=== PATIENT | female | born 1995 | race Caucasian/White ===

== ENCOUNTER → 2016-12-27 | Outpatient (CLI) | payer BC, OTHER, SELFPAY ==
[2016-12-27 16:18] LABS: CHLORIDE,CL 106 mmol/L (98-110); SODIUM,NA 140 mmol/L (136-146)
== END ==
LOC: MW.CHOBGYN 15:21
PROVIDERS: ATTEND Nurse Practitioner Women's Health
DX: R00.1 Bradycardia, unspecified (principal); R42 Dizziness and giddiness; I95.9 Hypotension, unspecified
CPT/HCPCS: 36415; 80048; 84703; 85025; 93005

== ENCOUNTER 2018-02-16 10:48 | Emergency (ER) | payer BC ==
--- NOTE | 2018-02-16 11:00 | EDM.PDOC ---
ED HPI GENERAL MEDICAL PROBLEM - General Chief Complaint: Respiratory Problem Stated Complaint: COUGH, CHEST CONGESTION Time Seen by Provider: 02/16/18 10:59 Source of Information: Reports: Patient - History of Present Illness INITIAL COMMENTS - FREE TEXT/NARRATIVE: HISTORY AND PHYSICAL: History of present illness: 23-year-old female presenting with chief complaint of cough 3 days. Patient states that approximately 3 days ago she began to have a cough with some mild yellow greenish sputum production. Cough is continued to be an issue however she is not as productive of since the first day of her illness. She has noted some subjective fevers as well as chills and night sweats in the evenings. She denies any significant nausea other than when she has a coughing exacerbation. She has had no diarrhea, pain, sore throat, sinus congestion, or dysuria. Family denies any chest pain, limitations, shortness of breath, syncopal episodes, focal neurologic deficits. She does have a history of childhood exertional asthma and was given an albuterol inhaler by her primary care provider. She is also somewhat concerned that moving into her new apartment may have a receptive this. Her fianc has not had symptoms but she does state that she is very sensitive to mold and other allergens. On exam patient does have prolonged expiratory phase bilaterally lower lobes but no significant wheezing. Review of systems: As per history of present illness and below otherwise all systems reviewed and negative. Past medical history: As per history of present illness and as reviewed below otherwise noncontributory. Surgical history: As per history of present illness and as reviewed below otherwise noncontributory. Social history: No reported history of drug or alcohol abuse. Family history: As per history of present illness and as reviewed below otherwise noncontributory. Physical exam: HEENT: Atraumatic, normocephalic, pupils reactive, negative for conjunctival pallor or scleral icterus, mucous membranes moist, throat clear, neck supple, nontender, trachea midline. Lungs: Clear to auscultation, prolonged expiratory phase by bilateral lower lobes, breath sounds equal bilaterally, chest nontender. Heart: S1S2, regular, negative for clicks, rubs, or JVD. Abdomen: Soft, nondistended, nontender. Negative for masses or hepatosplenomegaly. Negative for costovertebral tenderness. Pelvis: Stable nontender. Genitourinary: Deferred. Rectal: Deferred. Extremities: Atraumatic, negative for cords or calf pain. Neurovascular unremarkable. Neuro: Awake, alert, oriented. Cranial nerves II through XII unremarkable. Cerebellum unremarkable. Motor and sensory unremarkable throughout. Exam nonfocal. Diagnostics: cbc, bmp, cxr Therapeutics: duo-neb, Tessalon Perles Impression: Viral upper respiratory tract infection Plan: CBC, BMP, and chest x-ray were unremarkable. Patient most likely had a viral upper respiratory tract infection this was communicated to her. I did give her a prescription for Tessalon Perles to be used for her cough. She is instructed to follow-up with her primary care provider Gaye as well as return to emergency department if she had any new or worsening symptoms. Throat Pain Score (Numeric/FACES): 4 - Related Data Allergies Allergy/AdvReac Type Severity Reaction Status Date / Time No Known Allergies Allergy Verified 02/16/18 11:44 Home Meds: Home Meds . [No Known Home Meds] 02/16/18 [History] Past Medical History - Past Health History Medical/Surgical History: Denies Medical/Surgical History Social & Family History - Family History Family Medical History: Noncontributory - Caffeine Use Caffeine Use: Reports: Coffee ED ROS GENERAL - Review of Systems Review Of Systems: ROS reveals no pertinent complaints other than HPI. ED EXAM, GENERAL - Physical Exam Exam: See Below Course - Vital Signs Last Recorded V/S: Last Vital Signs Temp 97.3 F 02/16/18 11:38 Pulse 84 02/16/18 11:38 Resp 18 02/16/18 11:38 BP 104/76 02/16/18 11:38 Pulse Ox 97 02/16/18 11:38 - Orders/Labs/Meds Orders: Active Orders 24 hr Category Date Time Status RT Aerosol Therapy [RC] ASDIRECTED Care 02/16/18 11:49 Active CXR [Chest 2V] [CR] Stat Exams 02/16/18 11:45 Ordered BASIC METABOLIC PANEL,BMP [CHEM] Stat Lab 02/16/18 11:54 Received Labs: Laboratory Tests 02/16/18 Range/Units 11:54 WBC 6.09 (4.0-11.0) K/uL RBC 4.09 L (4.30-5.90) M/uL Hgb 12.2 (12.0-16.0) g/dL Hct 36.1 (36.0-46.0) % MCV 88.3 (80.0-98.0) fL MCH 29.8 (27.0-32.0) pg MCHC 33.8 (31.0-37.0) g/dL RDW Std Deviation 39.3 (28.0-62.0) fl RDW Coeff of Ese 12 (11.0-15.0) % Plt Count 180 (150-400) K/uL MPV 11.50 (7.40-12.00) fL Neut % (Auto) 44.0 L (48.0-80.0) % Lymph % (Auto) 37.8 (16.0-40.0) % [place] % (Auto) 6.9 (0.0-15.0) % Eos % (Auto) 10.5 H (0.0-7.0) % Baso % (Auto) 0.8 (0.0-1.5) % Neut # (Auto) 2.7 (1.4-5.7) K/uL Lymph # (Auto) 2.3 (0.6-2.4) K/uL [place] # (Auto) 0.4 (0.0-0.8) K/uL Eos # (Auto) 0.6 (0.0-0.7) K/uL Baso # (Auto) 0.1 (0.0-0.1) K/uL Nucleated RBC % 0.0 /100WBC Nucleated RBCs # 0 K/uL Meds: Medications Discontinued Medications Generic Name Dose Route Start Last Admin Trade Name Freq PRN Reason Stop Dose Admin Albuterol/Ipratropium 3 ml 02/16/18 11:49 02/16/18 11:57 Duoneb 3.0-0.5 Mg/3 Ml NEB 02/16/18 11:50 3 ml ONETIME ONE Administration Departure - Departure Time of Disposition: 12:53 Disposition: Home, Self-Care 01 Condition: Good Clinical Impression: Viral URI with cough - Discharge Information Referrals: Gaye Kwok, OCCUPATIONAL HEALTH NURSE SUPERVISOR [Primary Care Provider] - Forms: ED Department Discharge Additional Instructions: My general discharge The following information is given to patients seen in the emergency department who are being discharged to home. This information is to outline your options for follow-up care. We provide all patients seen in our emergency department with a follow-up referral. The need for follow-up, as well as the timing and circumstances, are variable depending upon the specifics of your emergency department visit. If you don't have a primary care physician on staff, we will provide you with a referral. We always advise you to contact your personal physician following an emergency department visit to inform them of the circumstance of the visit and for follow-up with them and/or the need for any referrals to a consulting specialist. The emergency department will also refer you to a specialist when appropriate. This referral assures that you have the opportunity for follow-up care with a specialist. All of these measure are taken in an effort to provide you with optimal care, which includes your follow-up. Under all circumstances we always encourage you to contact your private physician who remains a resource for coordinating your care. When calling for follow-up care, please make the office aware that this follow-up is from your recent emergency room visit. If for any reason you are refused follow-up, please contact the [facility] Emergency Department at and asked to speak to the emergency department charge nurse. [facility] [address] [place] [address] Take medications as prescribed. Follow-up with your primary care provider Return to emergency department if any new or worsening symptoms. - My Orders Last 24 Hours: My Active Orders 02/16/18 11:45 CXR [Chest 2V] [CR] Stat 02/16/18 11:49 RT Aerosol Therapy [RC] ASDIRECTED 02/16/18 11:54 BASIC METABOLIC PANEL,BMP [CHEM] Stat - Assessment/Plan Last 24 Hours: My Active Orders 02/16/18 11:45 CXR [Chest 2V] [CR] Stat 02/16/18 11:49 RT Aerosol Therapy [RC] ASDIRECTED 02/16/18 11:54 BASIC METABOLIC PANEL,BMP [CHEM] Stat
[2018-02-16] MEDS ORDERED: Albuterol/Ipratropium 3.0-0.5 MG/3 ML Neb Soln NEB ONE (11:49)
[2018-02-16 12:36] LABS: CHLORIDE,CL 104 mmol/L (98-107); SODIUM,NA 140 mmol/L (136-145)
[2018-02-16 13:16] VITALS: BP 112/68
--- NOTE | 2018-02-17 15:59 | CR ---
EXAM DATE: 02/16/18 PATIENT'S AGE: 23 Patient: ABHIJEET MUÑOZ Facility: [place], [place] Site . Site : 1995 Study: XRay Chest [id number]/17/2018 12:57:18 PM Ordering Physician: Everardo Sellers Final Report: INDICATION: Cough TECHNIQUE: Chest 2 views COMPARISON: None FINDINGS: Cardiovascular and mediastinum: Heart size and vasculature are normal in caliber and appearance. Lungs and pleural spaces: Lungs are clear. No sign of infiltrate or mass. No sign of pleural effusion. No pneumothorax. Bones and soft tissues: No significant findings. IMPRESSION: No acute or significant findings. Dictated by Dino Rodriguez MD @ Feb 16 2018 1:39PM (Electronic Signature) Report Signed by Proxy. HARJINDER
== END 2018-02-16 13:10 | disposition home or self-care (01) ==
LOC: MW.ED 10:48
DX: J06.9 Acute upper respiratory infection, unspecified (principal)
CPT/HCPCS: 36415; 71046; 71046-26; 80048; 85025; 94640; 99284-25

== ENCOUNTER 2018-12-24 19:03 | Emergency (ER) | payer OTHER, BC ==
[2018-12-24] MEDS ORDERED: Diphtheria,Pertussis(Acell),Tetanus Vaccine 0.5 ML Syringe IM ONE (19:26)
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
[2018-12-24 20:24] VITALS: BP 126/79
[2018-12-25] MEDS ORDERED: Sodium Chloride 0.9% 250 ML IV SCH (04:30)
== END 2018-12-24 20:22 | disposition home or self-care (01) ==
LOC: MW.ED 19:03
DX: S60.512A Abrasion of left hand, initial encounter (principal); Y09 Assault by unspecified means; Z23 Encounter for immunization
CPT/HCPCS: 36415; 86803; 87340; 87389; 90471; 90715; 99282; 99284

== ENCOUNTER 2019-03-14 15:55 | Emergency (ER) | payer BC, OTHER ==
[2019-03-14] MEDS ORDERED: methylPREDNISolone Sodium Succinate 125 MG/2 ML SDV IM ONE (15:58)
[2019-03-14] MEDS ORDERED: diphenhydrAMINE 50 MG Cap PO ONE (15:58)
[2019-03-14] MEDS ORDERED: EPINEPHrine 1 MG/ML SDV IM ONE (16:05)
[2019-03-14] MEDS ORDERED: Sodium Chloride 0.9% 2.5 ML Syringe FLUSH PRN (16:06)
[2019-03-14] MEDS ORDERED: Famotidine 20 MG/2 ML SDV IVPUSH ONE (16:06)
[2019-03-14] MEDS ORDERED: Sodium Chloride 0.9% 10 ML Syringe FLUSH PRN (16:06)
[2019-03-14] MEDS ORDERED: diphenhydrAMINE 50 MG/ML SDV IVPUSH ONE (16:06)
[2019-03-14] MEDS ORDERED: methylPREDNISolone Sodium Succinate 125 MG/2 ML SDV IVPUSH ONE (16:06)
--- NOTE | 2019-03-14 16:12 | EDM.PDOC ---
ED HPI GENERAL MEDICAL PROBLEM - General Chief Complaint: Allergic Reaction Stated Complaint: RASH, TROUBLE BREATHING Time Seen by Provider: 03/14/19 16:09 Source of Information: Reports: Patient History Limitations: Reports: No Limitations - History of Present Illness INITIAL COMMENTS - FREE TEXT/NARRATIVE: HISTORY AND PHYSICAL: History of present illness: Patient is a 24-year-old female presents to the ED with concern of allergic reaction. She has a history of environmental allergies. She states she was sitting on the couch approximately 1 hour prior to arrival to the ED when she felt like the right side of her throat was tight, lips swollen and itchy on the right, and right eye swollen. She states she then started to feel drainage from her sinuses down her throat. She took a claritin and a puff of her steroid inhaler. She states her voice has been hoarse for a couple of days due to a cold. She thinks she has a sinus infection as she has had nasal congestion and sinus pressure. Review of systems: As per history of present illness and below otherwise all systems reviewed and negative. Past medical history: As per history of present illness and as reviewed below otherwise noncontributory. Surgical history: As per history of present illness and as reviewed below otherwise noncontributory. Social history: No reported history of drug or alcohol abuse. Family history: As per history of present illness and as reviewed below otherwise noncontributory. Physical exam: General: Patient sitting comfortably in no acute distress and nontoxic appearing HEENT: Right maxillary sinus tenderness to palpation. No obvious oropharyngeal swelling. Right anterior cervical lymphadenopathy. Atraumatic, normocephalic, pupils reactive, negative for conjunctival pallor or scleral icterus, mucous membranes moist, throat clear, neck supple, nontender, trachea midline. No meningeal signs. Lungs: Clear to auscultation, breath sounds equal bilaterally, chest nontender. No stridor, wheezing or increased work of breathing. Heart: S1S2, regular, negative for clicks, rubs, or overt murmur. Abdomen: Soft, nondistended, nontender. Negative for masses or hepatosplenomegaly. Negative for costovertebral tenderness. No rigidity, rebound , guarding. Pelvis: Stable nontender. Genitourinary: Deferred. Rectal: Deferred. Extremities: Atraumatic, negative for cords or calf pain. Neurovascular unremarkable. Neuro: Awake, alert, oriented. Cranial nerves II through XII unremarkable. Cerebellum unremarkable. Motor and sensory unremarkable throughout. Exam nonfocal. Notes: Diagnostics: CBC, CMP Therapeutics: 0.4mg Epi IM 1L Normal Saline IV 50mg Benadryl IV 125mg Solumedrol IV 20mg Famotidine IV Prescriptions: Augmentin Medrol dosepak Impression: Acute sinusitis, allergic reaction Plan: 1. Take medications as instructed 2. Follow up with primary care provider 3. Return to ED as needed as discussed Definitive disposition and diagnosis as appropriate pending reevaluation and review of above. - Related Data Allergies Allergy/AdvReac Type Severity Reaction Status Date / Time No Known Allergies Allergy Verified 03/14/19 16:01 Home Meds: Home Meds Albuterol [Ventolin HFA] 03/14/19 [History] Amoxicillin/Clavulanate K [Augmentin 875-125 MG] 1 tab PO BID 7 Days #14 tablet 03/14/19 [Rx] Loratadine [Claritin] 10 mg PO DAILY 03/14/19 [History] methylPREDNISolone [Medrol] 4 mg PO ASDIRECTED #1 dosepk 03/14/19 [Rx] Past Medical History - Past Health History Medical/Surgical History: Denies Medical/Surgical History Social & Family History - Family History Family Medical History: Noncontributory - Tobacco Use Smoking Status *Q: Never Smoker - Caffeine Use Caffeine Use: Reports: Coffee, Tea - Recreational Drug Use Recreational Drug Use: No ED ROS ALLERGIC REACTION - Review of Systems Review Of Systems: ROS reveals no pertinent complaints other than HPI. ED EXAM GENERAL NO PERIP PULSE - Physical Exam Exam: See Below (see dictation) Course - Vital Signs Last Recorded V/S: Last Vital Signs Temp 97.6 F 03/14/19 15:59 Pulse 100 03/14/19 15:59 Resp 20 03/14/19 15:59 BP 142/82 H 03/14/19 15:59 Pulse Ox 99 03/14/19 15:59 - Orders/Labs/Meds Orders: Active Orders 24 hr Category Date Time Status Sodium Chloride 0.9% [Saline Flush] Med 03/14/19 16:06 Active 10 ml FLUSH ASDIRECTED PRN Sodium Chloride 0.9% [Saline Flush] Med 03/14/19 16:06 Active 2.5 ml FLUSH ASDIRECTED PRN Saline Lock Insert [OM.PC] Stat Oth 03/14/19 16:06 Ordered Medication Orders Sodium Chloride (Saline Flush) 10 ml FLUSH ASDIRECTED PRN PRN Reason: Keep Vein Open Sodium Chloride (Saline Flush) 2.5 ml FLUSH ASDIRECTED PRN PRN Reason: Keep Vein Open Labs: Laboratory Tests 03/14/19 03/14/19 Range/Units 16:15 16:15 WBC 8.43 (4.0-11.0) K/uL RBC 4.52 (4.30-5.90) M/uL Hgb 13.3 (12.0-16.0) g/dL Hct 40.9 (36.0-46.0) % MCV 90.5 (80.0-98.0) fL MCH 29.4 (27.0-32.0) pg MCHC 32.5 (31.0-37.0) g/dL RDW Std Deviation 41.5 (28.0-62.0) fl RDW Coeff of Ese 13 (11.0-15.0) % Plt Count 197 (150-400) K/uL MPV 12.00 (7.40-12.00) fL Neut % (Auto) 58.8 (48.0-80.0) % Lymph % (Auto) 24.4 (16.0-40.0) % [place] % (Auto) 11.6 (0.0-15.0) % Eos % (Auto) 5.0 (0.0-7.0) % Baso % (Auto) 0.2 (0.0-1.5) % Neut # (Auto) 5.0 (1.4-5.7) K/uL Lymph # (Auto) 2.1 (0.6-2.4) K/uL [place] # (Auto) 1.0 H (0.0-0.8) K/uL Eos # (Auto) 0.4 (0.0-0.7) K/uL Baso # (Auto) 0.0 (0.0-0.1) K/uL Nucleated RBC % 0.0 /100WBC Nucleated RBCs # 0 K/uL Sodium 143 (136-145) mmol/L Potassium 3.8 (3.5-5.1) mmol/L Chloride 106 (98-107) mmol/L Carbon Dioxide 30.1 (21.0-32.0) mmol/L BUN 10 (7.0-18.0) mg/dL Creatinine 0.8 (0.6-1.0) mg/dL Est Cr Clr Drug Dosing 113.32 mL/min Estimated GFR (MDRD) > 60.0 ml/min Glucose 80 (74-106) mg/dL Calcium 9.0 (8.5-10.1) mg/dL Total Bilirubin 0.4 (0.2-1.0) mg/dL AST 27 (15-37) IU/L ALT 31 (14-63) IU/L Alkaline Phosphatase 92 (46-116) U/L Total Protein 7.7 (6.4-8.2) g/dL Albumin 3.9 (3.4-5.0) g/dL Globulin 3.8 (2.6-4.0) g/dL Albumin/Globulin Ratio 1.0 (0.9-1.6) Meds: Medications Generic Name Dose Route Start Last Admin Trade Name Freq PRN Reason Stop Dose Admin Sodium Chloride 10 ml 03/14/19 16:06 Saline Flush FLUSH ASDIRECTED PRN Keep Vein Open Sodium Chloride 2.5 ml 03/14/19 16:06 Saline Flush FLUSH ASDIRECTED PRN Keep Vein Open Discontinued Medications Generic Name Dose Route Start Last Admin Trade Name Freq PRN Reason Stop Dose Admin Diphenhydramine HCl 50 mg 03/14/19 15:58 Benadryl PO 03/14/19 15:59 ONETIME ONE Diphenhydramine HCl 50 mg 03/14/19 16:06 03/14/19 16:16 Benadryl IVPUSH 03/14/19 16:07 50 mg ONETIME ONE Administration Epinephrine HCl 0.4 mg 03/14/19 16:05 03/14/19 16:16 Adrenalin IM 03/14/19 16:06 0.4 mg ONETIME ONE Administration Famotidine 20 mg 03/14/19 16:06 03/14/19 16:16 Pepcid IVPUSH 03/14/19 16:07 20 mg ONETIME ONE Administration Sodium Chloride 1,000 mls @ 999 mls/hr 03/14/19 16:13 03/14/19 16:24 Normal Saline IV 07/13/19 17:13 999 mls/hr .Bolus ONE Administration Methylprednisolone Sodium Succinate 125 mg 03/14/19 15:58 03/14/19 16:28 Solu-Medrol IM 03/14/19 15:59 Not Given ONETIME ONE Methylprednisolone Sodium Succinate 125 mg 03/14/19 16:06 03/14/19 16:16 Solu-Medrol IVPUSH 03/14/19 16:07 125 mg ONETIME ONE Administration Departure - Departure Time of Disposition: 17:03 Disposition: Home, Self-Care 01 Condition: Good Clinical Impression: Acute sinusitis, Allergic reaction - Discharge Information Prescriptions: Amoxicillin/Clavulanate K [Augmentin 875-125 MG] 1 tab PO BID 7 Days #14 tablet methylPREDNISolone [Medrol] 4 mg PO ASDIRECTED #1 dosepk Instructions: Sinusitis, Adult, [id number], Allergies, Adult Referrals: PCP,Unknown [Primary Care Provider] - Additional Instructions: The following information is given to patients seen in the emergency department who are being discharged to home. This information is to outline your options for follow-up care. We provide all patients seen in our emergency department with a follow-up referral. The need for follow-up, as well as the timing and circumstances, are variable depending upon the specifics of your emergency department visit. If you don't have a primary care physician on staff, we will provide you with a referral. We always advise you to contact your personal physician following an emergency department visit to inform them of the circumstance of the visit and for follow-up with them and/or the need for any referrals to a consulting specialist. The emergency department will also refer you to a specialist when appropriate. This referral assures that you have the opportunity for follow-up care with a specialist. All of these measure are taken in an effort to provide you with optimal care, which includes your follow-up. Under all circumstances we always encourage you to contact your private physician who remains a resource for coordinating your care. When calling for follow-up care, please make the office aware that this follow-up is from your recent emergency room visit. If for any reason you are refused follow-up, please contact the [facility] Emergency Department at and asked to speak to the emergency department charge nurse. [facility] [address] [place] [address] [facility] [address] [place] [address] 1. Take medications as instructed 2. Follow up with primary care provider 3. Return to ED as needed as discussed - My Orders Last 24 Hours: My Active Orders 03/14/19 16:06 Sodium Chloride 0.9% [Saline Flush] 10 ml FLUSH ASDIRECTED PRN Sodium Chloride 0.9% [Saline Flush] 2.5 ml FLUSH ASDIRECTED PRN Saline Lock Insert [OM.PC] Stat - Assessment/Plan Last 24 Hours: My Active Orders 03/14/19 16:06 Sodium Chloride 0.9% [Saline Flush] 10 ml FLUSH ASDIRECTED PRN Sodium Chloride 0.9% [Saline Flush] 2.5 ml FLUSH ASDIRECTED PRN Saline Lock Insert [OM.PC] Stat
[2019-03-14] MEDS ORDERED: Sodium Chloride 0.9% 1,000 ML IV ONE (16:13)
[2019-03-14 16:43] LABS: CHLORIDE,CL 106 mmol/L (98-107); SODIUM,NA 143 mmol/L (136-145)
[2019-03-14 17:27] VITALS: BP 142/86
== END 2019-03-14 17:25 | disposition home or self-care (01) ==
LOC: MW.ED 15:55
DX: T78.40XA Allergy, unspecified, initial encounter (principal); J01.90 Acute sinusitis, unspecified
CPT/HCPCS: 36415; 80053; 85025; 96361; 96372; 96374; 96375; 99283; J0171; J1200; J2930; J3490; J7040

== ENCOUNTER 2022-09-14 21:10 | Emergency (ER) | payer OTHER ==
[2022-09-14] MEDS ORDERED: Dexamethasone 10 MG/ML SDV PO ONE (22:51)
[2022-09-14 23:30] LABS: CORONAVIRUS COVID-19 NAA NEGATIVE (NEGATIVE); INFLUENZA A NAA NEGATIVE (NEGATIVE); INFLUENZA B NAA NEGATIVE (NEGATIVE); RESPIRATORY SYNCYTIAL VIR NAA NEGATIVE (NEGATIVE)
[2022-09-15 00:16] VITALS: BP 98/61; PULSE 63
== END 2022-09-15 00:15 | disposition home or self-care (01) ==
LOC: MW.ED 21:10
DX: J02.0 Streptococcal pharyngitis (principal); Z20.822 Contact with and (suspected) exposure to COVID-19
CPT/HCPCS: 0241U; 71046; 87651; 99283; J8540